=== PATIENT | female | born 1935 | race Caucasian/White ===

== ENCOUNTER 2018-09-02 16:24 | Emergency (ER) | payer MEDICARE, OTHER, MEDICAID ==
[~2018-09-02] VITALS: Ht 162.6 cm; Wt 79.5 kg
[2018-09-02 17:08] LABS: BASO % 0.2 % (0.0-2.0); EOS # 0.1 (0.0-0.7); EOS % 0.8 % (0-4.0); GRAN # 8.3 (1.4-6.5); GRAN % 68.6 % (42.2-75.2); LYMPH # 2.6 (1.2-3.4); LYMPH % 21.2 % (20.0-51.0); MEAN CELL VOLUME 95 fl (80.0-100.0); MEAN CORPUSCULAR HGB CONC 34 g/dl (33.0-37.0); MEAN PLATELET VOLUME 9.5 fl (7.4-10.4); MONO # 0.9 (0.1-0.6); MONO % 7.7 % (1.7-9.3); REDCELL DISTRIBUTION WIDTH-CV 13.1 % (11.5-14.5)
[2018-09-02 17:09] LABS: ALBUMIN 3.7 gm/dL (3.5-5.0); BILIRUBIN,TOTAL 0.5 mg/dL (0.0-1.0); CALCIUM 8.8 mg/dL (8.4-10.2); CREATININE, serum 1.23 mg/dL (0.52-1.25); POTASSIUM 4.1 mmol/L (3.4-5.0); RED BLOOD COUNT 3.36 M/mm3 (4.10-5.30); TOTAL PROTEIN 6.2 gm/dL (6.4-8.2)
[2018-09-02 17:10] LABS: HEMOGLOBIN 10.7 g/dl (12.5-16.0); MEAN CORPUSCULAR HEMOGLOBIN 32 pg (27.0-31.0)
[2018-09-02 17:11] LABS: HEMATOCRIT 31.8 % (37.0-47.0); PLATELET COUNT 275 K/mm3 (130-400)
[2018-09-02 17:20] LABS: PROTHROMBIN TIME 10.8 SECONDS (9.7-12.8)
[2018-09-02] MEDS ORDERED: PLAVIX 75MG TAB75 MG PO (17:21)
[2018-09-02] MEDS ORDERED: COZAAR100 MG PO (17:21)
[2018-09-02] MEDS ORDERED: LIPITOR20 MG PO (17:21)
[2018-09-02 17:22] LABS: PARTIAL THROMBOPLASTIN TIME 26.7 SECONDS (26.0-37.0)
[2018-09-02] MEDS ORDERED: TOBRADEX EYE DRO5 ML OP (17:22)
[2018-09-02] MEDS ORDERED: DEXILANT60 MG PO (17:23)
[2018-09-02] MEDS ORDERED: ASPIRIN 81M81 MG/TA2 PO (17:24)
[2018-09-02] MEDS ORDERED: ZETIA 10MG TAB10 MG PO (17:25)
[2018-09-02 19:03] VITALS: BP 140/77; PULSE 86; TEMP 97.9; TEMP 98.2
[2018-09-02 19:22] VITALS: BP 156/74; PULSE 89; TEMP 98.1
[2018-09-02 19:25] VITALS: BP 156/74; PULSE 88
== END 2018-09-02 19:45 | disposition short-term general hospital (02) ==
LOC: COL.ER 16:24
PROVIDERS: Emergency Medicine
DX: S62.102A Fracture of unspecified carpal bone, left wrist, initial encounter for closed fracture (principal); S06.5X9A Traumatic subdural hemorrhage with loss of consciousness of unspecified duration, initial encounter; I10 Essential (primary) hypertension; H54.7 Unspecified visual loss; Z79.01 Long term (current) use of anticoagulants; Z79.02 Long term (current) use of antithrombotics/antiplatelets; W10.9XXA Fall (on) (from) unspecified stairs and steps, initial encounter; Y92.009 Unspecified place in unspecified non-institutional (private) residence as the place of occurrence of the external cause
CPT/HCPCS: J2405; J7030; P9035; Q4050